=== PATIENT | female | born 1965 | race Caucasian/White ===

== ENCOUNTER 2019-02-13 15:46 | Emergency (ER) | payer BC ==
--- NOTE | 2019-02-13 17:19 | ED Physician Documentation ---
PD HPI HEADACHE - Stated complaint Stated Complaint: HEADACHE - Chief complaint Chief Complaint: Neuro - History obtained from History obtained from: Patient - History of Present Illness Timing - onset: How many days ago (2) Timing - onset during: Light activity (she was having BM 2 days ago and had onset of posterior headache, without LOC, confusion, nor focal weaknesses. No visual changes. headache improved but not resolved. Continued with some nausea, light sensitive. Had BM again this morning with same abrupt headache which has continued through the day. Able to still function at work.) Timing - duration: Hours (earlier today, about 6 hours ago.) Timing - details: Abrupt onset Worst headache ever?: No: Worst headache ever? Location: Back Quality: Other (abrupt onset) Associated symptoms: Nausea. No: Fever, Stiff neck, Vomiting, Vision changes Improved by: No: Meds (tried Tylenol without improvement.) Worsened by: Light, Noise Contributing factors: No: Hypertension, Recent illness Similar symptoms before: Has not had sx before (previously had migraines but not for years.) Recently seen: Not recently seen Review of Systems Constitutional: denies: Fever, Chills Eyes: reports: Photophobia (mild). denies: Loss of vision, Decreased vision, Irritation Nose: denies: Rhinorrhea / runny nose, Congestion Throat: denies: Sore throat Cardiac: denies: Chest pain / pressure Respiratory: denies: Cough GI: reports: Nausea. denies: Abdominal Pain, Vomiting, Diarrhea Neurologic: reports: Headache. denies: Focal weakness, Numbness, Near syncope, Confused, Altered mental status, Head injury Endocrine: denies: Weight loss Immunocompromised: denies: Immunocompromised, Chemotherapy PD PAST MEDICAL HISTORY - Past Medical History Cardiovascular: None Respiratory: None Neuro: Migraines Endocrine/Autoimmune: None - Present Medications Home Medications: Ambulatory Orders Medication Instructions Recorded Confirmed Hydrocodone/Acetaminophen [[place] 1 each PO Q6H PRN #15 tablet 02/13/19 5-325 Tablet] Ondansetron Odt [Zofran] 4 mg TL Q6H PRN #10 tablet 02/13/19 dexAMETHasone [Decadron] 4 mg PO DAILY #7 tablet 02/13/19 - Allergies Allergies/Adverse Reactions: Allergies Allergy/AdvReac Type Severity Reaction Status Date / Time Penicillins Allergy Itching Verified 02/13/19 15:57 Sulfa (Sulfonamide Allergy Itching Verified 02/13/19 15:57 Antibiotics) PD ED PE NORMAL - Vitals Vital signs reviewed: Yes - General General: Alert and oriented X 3, No acute distress, Well developed/nourished - HEENT HEENT: PERRL, EOMI, Pharynx benign - Neck Neck: Supple, no meningeal sign, No adenopathy, No bruit - Cardiac Cardiac: RRR, No murmur - Respiratory Respiratory: Clear bilaterally - Abdomen Abdomen: Soft, Non tender - Derm Derm: Normal color, Warm and dry - Extremities Extremities: Normal ROM s pain - Neuro Neuro: Alert and oriented X 3, production grip 2-12 intact, No motor deficit, No sensory deficit, Normal speech, Other Eye Opening: Spontaneous Motor: Obeys Commands Verbal: Oriented GCS Score: 15 Results - Vitals Vitals: Vital Signs - 24 hr 02/13/19 02/13/19 02/13/19 15:53 17:20 18:14 Temperature 37.0 C 36.9 C Heart Rate 85 90 79 Respiratory 15 16 18 Rate Blood Pressure 151/104 H 176/85 H 144/75 H O2 Saturation 98 98 100 02/13/19 19:24 Temperature Heart Rate 78 Respiratory 14 Rate Blood Pressure 149/87 H O2 Saturation 97 Oxygen O2 Source Room air - Labs Labs: Laboratory Tests 02/13/19 02/13/19 02/13/19 18:15 18:15 18:15 WBC 7.1 RBC 4.62 Hgb 13.9 Hct 42.2 MCV 91.3 MCH 30.1 MCHC 32.9 RDW 12.9 Plt Count 189 MPV 9.5 Neut # (Auto) 4.1 Lymph # (Auto) 2.0 Stanley # (Auto) 0.8 Eos # (Auto) 0.2 Baso # (Auto) 0.0 Absolute Nucleated RBC 0.00 Nucleated RBC % 0.0 ESR 10 Sodium 142 Potassium 3.6 Chloride 106 Carbon Dioxide 28 Anion Gap 8.0 BUN 16 Creatinine 0.7 Estimated GFR (MDRD) 88 L Glucose 137 H Calcium 9.2 Total Bilirubin 0.3 AST 16 ALT 16 Alkaline Phosphatase 75 Total Protein 6.9 Albumin 3.8 Globulin 3.1 Albumin/Globulin Ratio 1.2 Lipase 40 - Rads (name of study) head CT Radiology: Prelim report reviewed, See rad report (normal) PD MEDICAL DECISION MAKING - ED course Complexity details: re-evaluated patient (improved headache. Discussed potential LP as well, after normal CT. The CT should be conclusive of SAH and certainly ICH in this time frame with new headache again today (would not be conclusive of headache from2 days ago). Patient opted for no LP and I would be in agreement with this. ), considered differential (initial headache 2 days ago, but then abrupt worsening again today with BM. Head CT normal, which excludes ICH. Given current literature guidelines, should also exlcude SAH, since is in 6 hour timeframe from abrupt headache today (if were new leak). She also improved with IV fluids and migraine targeted therapy. ), d/w patient Departure - Departure Disposition: 01 Home, Self Care Clinical Impression: Acute headache Qualifiers: Headache type: unspecified Intractability: intractable Qualified Code(s): R51 - Headache Condition: Stable Record reviewed to determine appropriate education?: Yes Instructions: ED Headache Migraine Prescriptions: dexAMETHasone [Decadron] 4 mg PO DAILY #7 tablet Hydrocodone/Acetaminophen [[place] 5-325 Tablet] 1 each PO Q6H PRN #15 tablet PRN Reason: Pain Ondansetron Odt [Zofran] 4 mg TL Q6H PRN #10 tablet PRN Reason: Nausea / Vomiting Comments: Stay well-hydrated. Tylenol ibuprofen if needed for mild headache. Decadron daily for a week to help 3 reduce the apparent migraine. Ondansetron if needed for nausea. Hydrocodone if needed for worse pain. Recheck if not improved well over the next couple of days. Return if worsening headache or other associated symptoms. Discharge Date/Time: 02/13/19 19:32
[2019-02-13] MEDS ORDERED: METOCLOPRAMIDE 10 MG/2 ML VIAL IVP STA (17:34)
[2019-02-13] MEDS ORDERED: SODIUM CHLORIDE 0.9% 1,000 ML IV ONE (17:34)
[2019-02-13] MEDS ORDERED: diphenhydrAMINE INJ 50 MG/ML VIAL IVP STA (17:34)
[2019-02-13] MEDS ORDERED: KETOROLAC 15 MG/ML VIAL IVP STA (17:34)
[2019-02-13 18:24] LABS: BASOPHILS % (AUTO) 0.6 %; EOSINOPHILS # (AUTO) 0.2 10^3/uL (0.0-0.7); EOSINOPHILS % (AUTO) 2.4 %; HGB - HEMOGLOBIN 13.9 g/dL (12.0-16.0); LYMPHOCYTES % (AUTO) 28.6 %; MEAN CORPUSCULAR HEMOGLOBIN 30.1 pg (27.0-31.0); MEAN CORPUSCULAR HGB CONC 32.9 g/dL (32.0-36.0); MEAN CORPUSCULAR VOLUME 91.3 fL (81.0-99.0); MEAN PLATELET VOLUME 9.5 fL (7.9-10.8); MONOCYTES # (AUTO) 0.8 10^3/uL (0.0-1.0); MONOCYTES % (AUTO) 11.3 %; NEUTROPHILS # (AUTO) 4.1 10^3/uL (1.5-6.6); NEUTROPHILS % (AUTO) 56.8 %; PLT - PLATELET COUNT 189 10^3/uL (130-450); RED BLOOD COUNT 4.62 10^6/uL (4.20-5.40); RED CELL DISTRIBUTION WIDTH 12.9 % (12.0-15.0); WHITE BLOOD COUNT 7.1 x10^3/uL (4.8-10.8)
[2019-02-13 18:33] LABS: ALBUMIN 3.8 g/dL (3.2-5.5); ALBUMIN/GLOBULIN RATIO 1.2 (1.0-2.2); BILIRUBIN,TOTAL 0.3 mg/dL (0.2-1.0); CALCIUM 9.2 mg/dL (8.5-10.3); CREATININE 0.7 mg/dL (0.4-1.0); TOTAL PROTEIN 6.9 g/dL (6.7-8.2)
[2019-02-13] MEDS ORDERED: DEXAMETHASONE 10 MG/ML VIAL IVP STA (18:42)
--- NOTE | 2019-02-13 18:42 | CT Report ---
Reason: abrupt headache 2 days ago and again this morning Procedure Date: 02/13/2019 Accession Number: [id number] / [id number] Procedure: CT - HEAD WO CPT Code: FULL RESULT: EXAM: CT HEAD EXAM DATE: 02/13/2019 06:07 PM. CLINICAL HISTORY: Headache. COMPARISON: None. TECHNIQUE: Multiaxial CT images were obtained from the foramen magnum to the vertex. Reformats: Sagittal and coronal. IV contrast: None. In accordance with CT protocol optimization, one or more of the following dose reduction techniques were utilized for this exam: automated exposure control, adjustment of mA and/or KV based on patient size, or use of iterative reconstructive technique. FINDINGS: Parenchyma: No intraparenchymal hemorrhage. No evidence of mass, midline shift, or CT findings of infarction. Gao-white differentiation is distinct. Extraaxial Spaces: Normal for age. No subdural or epidural collections identified. Ventricles: Normal in size and position. Sinuses and Orbits: Imaged paranasal sinuses, orbits, and mastoids show no significant abnormality. Bones: No evidence of fracture or calvarial defect. Other: None. IMPRESSION: Normal head CT. RADIA
[2019-02-13 19:24] VITALS: BP 149/87
== END 2019-02-13 19:32 | disposition home or self-care (01) ==
LOC: ED 15:46
DX: R51 Headache (principal); R11.0 Nausea
CPT/HCPCS: 36415; 70450; 80053; 83690; 85025; 85651; 96361; 96374; 96375; 99284; J1200; J2765

== ENCOUNTER 2019-04-03 09:42 | Outpatient (CLI) | payer BC ==
[2019-04-03 10:58] LABS: CHOL/HDL RATIO 3.8 (<4.4); CHOLESTEROL 222 mg/dL; HDL CHOLESTEROL 58 mg/dL; LDL CHOLESTEROL,CALCULATED 139 mg/dL; LDL/HDL RATIO 2.4 (<4.4); VLDL CHOLESTEROL 25 mg/dL
[2019-04-03 11:01] LABS: HB2 TOTAL 14.6 g/dL; HEMOGLOBIN A1C 0.63 g/dL; HEMOGLOBIN A1C % 6.1 % (4.6-6.2)
== END 2019-04-03 09:43 | disposition home or self-care (01) ==
LOC: LAB 09:42
PROVIDERS: ATTEND Registered Nurse
DX: Z13.220 Encounter for screening for lipoid disorders (principal); Z13.228 Encounter for screening for other metabolic disorders; Z13.29 Encounter for screening for other suspected endocrine disorder
CPT/HCPCS: 36415; 80061; 83036; 83721; 84443

== ENCOUNTER 2019-04-27 12:57 | Outpatient (CLI) | payer BC | END 2019-04-27 12:58 | disposition home or self-care (01) | LOC: DI 12:57 | PROVIDERS: ATTEND Registered Nurse | DX: Z12.31 Encounter for screening mammogram for malignant neoplasm of breast (principal) | CPT/HCPCS: 77063; 77067 ==

== ENCOUNTER 2019-04-27 12:59 | Outpatient (CLI) | payer BC ==
--- NOTE | 2019-05-01 10:06 | DEXA Report ---
Reason: POSTMENOPAUSAL Procedure Date: 04/27/2019 Accession Number: [id number] / [id number] Procedure: DEX - Dexa Spine and/or Hip CPT Code: Final Report FULL RESULT: EXAM: Dexa Spine and/or Hip DATE: 04/27/2019 2:10 PM CLINICAL HISTORY: POSTMENOPAUSAL TECHNIQUE: Dual energy x-ray absorptiometry (DXA) was performed on a [employer]edoX System. Regions measured are the AP Spine, femoral neck, and if needed forearm. COMPARISON: None. In accordance with the International Society for Clinical Densitometry (ISCD) guidelines, data from previous exams may be reanalyzed using current recommendations and techniques. This is done to allow a more accurate basis for comparison with the current study. FINDINGS: The data for the lumbar spine is as follows: BMD (g/cm/cm) T-SCORE Z-SCORE REGION L1 1.191 0.5 0.0 L2 1.304 0.9 0.3 L3 1.327 1.1 0.5 L4 1.441 2.0 1.5 TOTAL 1.327 1.2 0.7 NOTE: All evaluable vertebrae are used for classification The data for the hip is as follows: BMD (g/cm/cm) T-SCORE Z-SCORE REGION Neck 0.914 -0.9 -0.7 TOTAL 1.013 0.0 -0.2 NOTE: The femoral neck or total proximal femur, whichever is lowest, is used for classification. IMPRESSION: THE WHO CLASSIFICATION BASED ON THE INTERNATIONAL REFERENCE STANDARD IS NORMAL. THE FRACTURE RISK IS NOT INCREASED. RECOMMENDATION: Patients with diagnosis of osteoporosis or osteopenia should have regular bone mineral density assessment. For those eligible for Medicare, routine testing is allowed once every 2 years. Testing frequency can be increased for patients who have rapidly progressing disease or for those who are receiving medical therapy to restore bone mass. COMMENT: World Health Organization (WHO) definitions for osteoporosis and osteopenia: NORMAL BMD: T-score at -1.0 or higher, fracture risk is low OSTEOPENIA BMD: T-score between -1.0 and -2.5, fracture risk is increased. OSTEOPOROSIS BMD: T-score at -2.5 or lower, fracture risk is high. National Osteoporosis Foundation recommends: 1. Obtain adequate dietary calcium (at least 1200 mg per day) and vitamin D (400-800 international units per day). 2. Participate, as appropriate, in regular weightbearing and muscle-strengthening exercise. 3. Avoid tobacco use and reduce alcohol and caffeine intake. 4. For more detailed information see the website at www.NOF.org.
== END 2019-04-27 13:00 | disposition home or self-care (01) ==
LOC: DI 12:59
PROVIDERS: ATTEND Registered Nurse
DX: Z78.0 Asymptomatic menopausal state (principal)
CPT/HCPCS: 77080